=== PATIENT | male | born 1935 | race Caucasian/White ===

== ENCOUNTER 2017-03-26 15:28 | Inpatient (IN) | payer MEDICARE ==
[~2017-03-26] VITALS: Ht 177.8 cm; Wt 79.1 kg
[2017-03-26] VITALS (8 sets, daily range): BP systolic 148–225; BP diastolic 71–96; PULSE 75–96; RESP 18–20; TEMP 99.8–101.2; O2SAT 93–97
[2017-03-26] MEDS ORDERED: BP MED (15:48)
[2017-03-26] MEDS ORDERED: SODIUM CHLOR 0.9% 1000 ML INJ 1,000 ML IV ONE ×2 (16:08)
[2017-03-26] MEDS ORDERED: SODIUM CHLOR 0.9% 1000 ML INJ 400 ML IV ONE (16:08)
[2017-03-26] MEDS ORDERED: cefTRIAXone INJ 2,000 MG in SODIUM CHLORIDE 0.9% INJ 100 ML IV STA (16:08)
[2017-03-26] MEDS ORDERED: AZITHROMYCIN INJ 500 MG in SODIUM CHLOR 0.9% 250 ML INJ 250 ML IV STA (16:08)
[2017-03-26] MEDS ORDERED: OSELTAMIVIR PHOSPHATE 75 MG CAP PO ONE ×2 (16:15→17:00)
[2017-03-26] MEDS ORDERED: ACETAMINOPHEN 325 MG TAB PO ONE (16:15)
[2017-03-26 16:41] LABS: AUTOMATED NEUTROPHIL # 4.8 TH/MM3 (1.8-7.7); BASOPHIL % 0.4 % (0.0-2.0); EOSINOPHIL % 0.1 % (0.0-4.0); HEMATOCRIT 43.7 % (39.0-51.0); HEMOGLOBIN 15.1 GM/DL (13.0-17.0); LYMPH % 7.5 % (9.0-44.0); LYMPHOCYTE # 0.4 TH/MM3 (1.0-4.8); MEAN CELL VOLUME 83.6 FL (80.0-100.0); MEAN CORPUSCULAR HGB CONC 34.6 % (32.0-36.0); MEAN PLATELET VOLUME 7.9 FL (7.0-11.0); MONO % 9.4 % (0.0-8.0); MONOCYTE # 0.5 TH/MM3 (0-0.9); NEUT % 82.6 % (16.0-70.0); PLATELET COUNT 154 TH/MM3 (150-450); RED BLOOD COUNT 5.22 MIL/MM3 (4.50-5.90); RED CELL DISTRIBUTION WIDTH 12.7 % (11.6-17.2); WHITE BLOOD COUNT 5.7 TH/MM3 (4.0-11.0)
[2017-03-26 16:50] LABS: CHLORIDE 102 MEQ/L (98-107); SODIUM (NA) 136 MEQ/L (136-145)
[2017-03-26 16:54] LABS: ALBUMIN 3.5 GM/DL (3.4-5.0); BICARBONATE 29.5 MEQ/L (21.0-32.0); BLOOD UREA NITROGEN 20 MG/DL (7-18); CALCIUM 8.1 MG/DL (8.5-10.1); GLUCOSE,RANDOM 98 MG/DL (74-106)
[2017-03-26] MEDS ORDERED: PRIL20TA2 (16:56)
[2017-03-26] MEDS ORDERED: AMLO10 PO (16:56)
[2017-03-26] MEDS ORDERED: ENAL20TA81 PO (16:56)
[2017-03-26 16:57] LABS: ALT (GPT) 24 U/L (12-78); AST (GOT) 28 U/L (15-37)
[2017-03-26 16:58] LABS: GLOMERULAR FILTRATION RATE 53 ML/MIN (>89)
--- NOTE | 2017-03-26 16:58 | PD ---
HPI Chief Complaint: Cold / Flu Symptoms Time Seen by Provider: 16:08 Travel History International Travel<30 days: No Contact w/Intl Traveler<30days: No Traveled to known affect area: No History of Present Illness HPI 81-year-old male arrives with rigorous and fever. He's had a cough for about 1 day. Occasional dyspnea is reported associated with severe spells. He denies chest pain. Patient reports noncompliance with antihypertensives, lisinopril and amlodipine, this morning due to cold symptoms. No nausea vomiting or diarrhea. No abdominal pain. Patient reports a history of coronary artery disease. He has no smoking history. He denies sick contacts. The patient is visiting from [place]. The daughter reports he is very active typically for his age. [facility] Past Medical History Myocardial Infarction: Yes Past Surgical History Abdominal Surgery: Yes (INTESTINE REMOVED) Appendectomy: Yes Cardiac Surgery: Yes (7 STENTS) Cholecystectomy: Yes Tonsillectomy: Yes Social History Alcohol Use: No Tobacco Use: No Substance Use: No Allergies-Medications (Allergen,Severity, Reaction): Coded Allergies: bacitracin (Verified Allergy, Severe, RASH, 03/26/17) neomycin (Verified Allergy, Severe, RASH, 03/26/17) polymyxin B (Verified Allergy, Severe, RASH, 03/26/17) Reported Meds & Prescriptions Reported Meds & Active Scripts Active Reported Prilosec (Omeprazole Magnesium) 20 Mg Tab Vasotec (Enalapril Maleate) 20 Mg Tab 20 Mg PO DAILY Norvasc (Amlodipine Besylate) 10 Mg Tab 10 Mg PO DAILY Review of Systems Except as stated in HPI: all other systems reviewed are Neg General / Constitutional: No: Fever Physical Exam Narrative GENERAL: 81-year-old male pleasant well-nourished well-developed, frequent cough Vital Signs Date Time Temp Pulse Resp B/P (MAP) Pulse Ox O2 Delivery O2 Flow Rate FiO2 03/26/17 16:49 86 20 225/94 (137) 94 03/26/17 16:36 96 03/26/17 15:30 100.3 96 20 196/96 (129) 93 SKIN: Warm and dry. HEAD: Atraumatic. Normocephalic. EYES: Pupils equal and round. No scleral icterus. No injection or drainage. ENT: No nasal bleeding or discharge. Mucous membranes pink and moist. NECK: Trachea midline. No JVD. CARDIOVASCULAR: Regular rate and rhythm. RESPIRATORY: No accessory muscle use. Clear to auscultation. Breath sounds equal bilaterally. GASTROINTESTINAL: Abdomen soft, non-tender, nondistended. Hepatic and splenic margins not palpable. MUSCULOSKELETAL: Extremities without clubbing, cyanosis, or edema. No obvious deformities. NEUROLOGICAL: Awake and alert. No obvious cranial nerve deficits. Motor grossly within normal limits. Five out of 5 muscle strength in the arms and legs. Normal speech. PSYCHIATRIC: Appropriate mood and affect; insight and judgment normal. Data Data Last Documented VS Vital Signs Date Time Temp Pulse Resp B/P (MAP) Pulse Ox O2 Delivery O2 Flow Rate FiO2 03/26/17 16:49 86 20 225/94 (137) 94 03/26/17 15:30 100.3 Orders Orders Sepsis Workup Initiated (03/26/17 ) Electrocardiogram (03/26/17 16:08) Complete Blood Count With Diff (03/26/17 16:08) Comprehensive Metabolic Panel (03/26/17 16:08) Lactic Acid Sepsis Protocol (03/26/17 16:08) Urinalysis - C+S If Indicated (03/26/17 16:08) Influenzae A/B Antigen (03/26/17 16:08) Blood Culture (03/26/17 16:08) Blood Glucose (03/26/17 16:08) Ecg Monitoring (03/26/17 16:08) Iv Access Insert/Monitor (03/26/17 16:08) Oximetry (03/26/17 16:08) Oxygen Administration (03/26/17 16:08) Acetaminophen (Tylenol) (03/26/17 16:15) Ceftriaxone Inj (Rocephin Inj) (03/26/17 16:08) Azithromycin Inj (Zithromax Inj) (03/26/17 16:08) Sodium Chlor 0.9% 1000 Ml Inj (Ns 1000 M (03/26/17 16:08) Sodium Chlor 0.9% 1000 Ml Inj (Ns 1000 M (03/26/17 16:08) Sodium Chlor 0.9% 1000 Ml Inj (Ns 1000 M (03/26/17 16:08) Oseltamivir (Tamiflu) (03/26/17 16:15) Oseltamivir (Tamiflu) (03/26/17 17:00) Amlodipine (Norvasc) (03/26/17 17:00) Lisinopril (Prinivil) (03/26/17 17:00) Place In Observation (03/26/17 ) Vital Signs (Adult) BISHOP.Q4H (03/26/17 17:09) Activity Oob With Assistance (03/26/17 17:09) Admit Order (Ed Use Only) (03/26/17 ) [employer] Operator / Telemetry BISHOP.Q8H (03/26/17 17:09) Vital Signs (Adult) Q4H (03/26/17 17:09) Diet Heart Healthy (03/26/17 Dinner) Activity Oob With Assistance (03/26/17 17:09) Chest, Single Ap (03/26/17 ) Labs Laboratory Tests Test 03/26/17 16:25 03/26/17 16:30 White Blood Count 5.7 TH/MM3 Red Blood Count 5.22 MIL/MM3 Hemoglobin 15.1 GM/DL Hematocrit 43.7 % Mean Corpuscular Volume 83.6 FL Mean Corpuscular Hemoglobin 29.0 PG Mean Corpuscular Hemoglobin Concent 34.6 % Red Cell Distribution Width 12.7 % Platelet Count 154 TH/MM3 Mean Platelet Volume 7.9 FL Neutrophils (%) (Auto) 82.6 % Lymphocytes (%) (Auto) 7.5 % Monocytes (%) (Auto) 9.4 % Eosinophils (%) (Auto) 0.1 % Basophils (%) (Auto) 0.4 % Neutrophils # (Auto) 4.8 TH/MM3 Lymphocytes # (Auto) 0.4 TH/MM3 Monocytes # (Auto) 0.5 TH/MM3 Eosinophils # (Auto) 0.0 TH/MM3 Basophils # (Auto) 0.0 TH/MM3 CBC Comment DIFF FINAL Differential Comment Blood Urea Nitrogen 20 MG/DL Creatinine 1.30 MG/DL Random Glucose 98 MG/DL Total Protein 7.3 GM/DL Albumin 3.5 GM/DL Calcium Level 8.1 MG/DL Alkaline Phosphatase 67 U/L Aspartate Amino Transf (AST/SGOT) 28 U/L Alanine Aminotransferase (ALT/SGPT) 24 U/L Total Bilirubin 0.6 MG/DL Sodium Level 136 MEQ/L Potassium Level 3.7 MEQ/L Chloride Level 102 MEQ/L Carbon Dioxide Level 29.5 MEQ/L Anion Gap 5 MEQ/L Estimat Glomerular Filtration Rate 53 ML/MIN Lactic Acid Level 1.1 mmol/L MDM Medical Decision Making Medical Screen Exam Complete: Yes Emergency Medical Condition: Yes Medical Record Reviewed: Yes Differential Diagnosis Sepsis, pneumonia, influenza, anemia Narrative Course CBC & BMP Diagram 03/26/17 16:25 Total Protein 7.3, Albumin 3.5, Calcium Level 8.1 L, Alkaline Phosphatase 67, Aspartate Amino Transf (AST/SGOT) 28, Alanine Aminotransferase (ALT/SGPT) 24, Total Bilirubin 0.6 Blood cultures drawn. Rocephin and azithromycin given initially with concern for pneumonia however the patient is influenza positive and the presentation is consistent with influenza this season. Tamiflu started. Patient will be admitted. Discussed with Dr Collier. Sepsis Criteria SIRS Criteria (2 or more): Heart rate over 90, RR > 20 or PaCO2 < 32 Diagnosis Primary Impression: Influenza Admitting Information Admitting Physician Requests: Admit Jorge Vogel MD Mar 26, 2017 16:58
[2017-03-26 16:59] LABS: TOTAL BILIRUBIN ADULT 0.6 MG/DL (0.2-1.0); TOTAL PROTEIN 7.3 GM/DL (6.4-8.2)
[2017-03-26 17:00] LABS: ALKALINE PHOSPHATASE 67 U/L (45-117)
[2017-03-26] MEDS ORDERED: LISINOPRIL 20 MG TAB PO ONE (17:00)
--- NOTE | 2017-03-26 17:21 | RADRPT ---
EXAM DATE/TIME: 03/26/2017 17:01 [place] COMPARISON: No previous studies available for comparison. INDICATIONS : Cough and fever for 2 days. MEDICAL HISTORY : Myocardial infarction. SURGICAL HISTORY : Coronary artery stent. Appendectomy. Cholecystectomy. Bowel resection. ENCOUNTER: Initial ACUITY: 2 days PAIN SCORE: 0/10 LOCATION: Bilateral chest FINDINGS: A single view of the chest demonstrates the lungs to be symmetrically aerated without evidence of mas s, infiltrate or effusion. Mild cardiomegaly. Osseous structures are intact. CONCLUSION: Mild cardiomegaly. Clear lungs. Antonio Hung Jr., MD on March 26, 2017 at 17:18 Board Certified Radiologist. This report was verified electronically.
--- NOTE | 2017-03-26 18:16 | HHI.HP ---
[facility] No Primary Care Physician Admission Diagnosis Sepsis Criteria, +Influenza, HTN Diagnoses: Chief Complaint: Cough and fever Travel History International Travel<30 Days: No Contact w/Intl Traveler <30 Da: No Traveled to Known Affected Are: No History of Present Illness 81-year-old white male being admitted for AK I secondary to dehydration secondary to influenza. Patient was in his usual state of health until last night when he says his chronic cough got much worse and he felt subjective fevers and chills. He says he felt weak and had a poor appetite all day. This morning he felt worse and thus decided to come to the emergency department. He says his cough is productive but nonbloody. Still is feeling fevers and chills this morning. His daughter brought him to the emergency department. In the emergency room he was found to be flu positive and with a mild TEA with a GFR of around 53. He did get a chest x-ray which I independently reviewed and see no acute infiltrates. He was given IV boluses and rocephin and azithromycin. Past medical history significant for perforated intestine as well as esophageal injury secondary to intubation. PSH is significant for colostomy and reanastomosis. Patient does have a significant social history where he smoked since his teenage years until about 20 years ago. 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 Family history is significant as the daughter who he lives w/ recently had a sinus infx. Review of Systems Except as stated in HPI: all other systems reviewed are Neg Past Family Social History Allergies: Coded Allergies: bacitracin (Verified Allergy, Severe, RASH, 03/26/17) neomycin (Verified Allergy, Severe, RASH, 03/26/17) polymyxin B (Verified Allergy, Severe, RASH, 03/26/17) Physical Exam Vital Signs Vital Signs Date Time Temp Pulse Resp B/P (MAP) Pulse Ox O2 Delivery O2 Flow Rate FiO2 03/26/17 18:04 03/26/17 17:42 88 20 178/76 (110) 96 03/26/17 16:49 86 20 225/94 (137) 94 03/26/17 16:36 96 03/26/17 15:30 100.3 96 20 196/96 (129) 93 Physical Exam VS: afebrile GENERAL: In mild distress secondary to intense coughing spells, otherwise has no dyspnea outside of those coughing spells SKIN: Warm and dry. EYES: No scleral icterus. No injection or drainage. ENT: No nasal bleeding or discharge. Mucous membranes pink and moist. Hyperemic oropharynx CARDIOVASCULAR: Regular rate and rhythm. no murmurs RESPIRATORY: No accessory muscle use. Junky breath sounds bilaterally GASTROINTESTINAL: Abdomen soft, non-tender, nondistended. Extremities: No clubbing, cyanosis, or edema. No obvious deformities. MUSCULOSKELETAL: adequate muscle bulk and tone for age and habitus NEUROLOGICAL: Awake and alert. No obvious cranial nerve deficits. No facial droop nor slurred speech noted. PSYCHIATRIC: Appropriate mood and affect; insight and judgment normal. Laboratory Laboratory Tests Test 03/26/17 16:25 03/26/17 16:30 White Blood Count 5.7 Red Blood Count 5.22 Hemoglobin 15.1 Hematocrit 43.7 Mean Corpuscular Volume 83.6 Mean Corpuscular Hemoglobin 29.0 Mean Corpuscular Hemoglobin Concent 34.6 Red Cell Distribution Width 12.7 Platelet Count 154 Mean Platelet Volume 7.9 Neutrophils (%) (Auto) 82.6 Lymphocytes (%) (Auto) 7.5 Monocytes (%) (Auto) 9.4 Eosinophils (%) (Auto) 0.1 Basophils (%) (Auto) 0.4 Neutrophils # (Auto) 4.8 Lymphocytes # (Auto) 0.4 Monocytes # (Auto) 0.5 Eosinophils # (Auto) 0.0 Basophils # (Auto) 0.0 CBC Comment DIFF FINAL Differential Comment Blood Urea Nitrogen 20 Creatinine 1.30 Random Glucose 98 Total Protein 7.3 Albumin 3.5 Calcium Level 8.1 Alkaline Phosphatase 67 Aspartate Amino Transf (AST/SGOT) 28 Alanine Aminotransferase (ALT/SGPT) 24 Total Bilirubin 0.6 Sodium Level 136 Potassium Level 3.7 Chloride Level 102 Carbon Dioxide Level 29.5 Anion Gap 5 Estimat Glomerular Filtration Rate 53 Lactic Acid Level 1.1 Date/Time Source Procedure Growth Status 03/26/17 16:30 Blood Peripheral Aerobic Blood Culture Pending Received 03/26/17 16:30 Blood Peripheral Anaerobic Blood Culture Pending Received 03/26/17 16:08 Nasal Aspirate Influenza Types A,B Antigen (DB) - Final Positive For Flu A Antigen Complete Result Diagram: 03/26/17 1625 03/26/17 1625 Imaging Last Impressions Chest X-Ray 03/26/17 0000 Signed Impressions: Service Date/Time: Sunday, March 26, 2017 17:01 - CONCLUSION: Mild cardiomegaly. Clear lungs. MD Alla Mccoy Jr. VTE Risk Assessment Caprini VTE Risk Assessment: Mod/High Risk (score >= 2) Caprini Risk Assessment Model Point Value = 1 Point Value = 2 Point Value = 3 Point Value = 5 Age 41-60 Minor surgery BMI > 25 kg/m2 Swollen legs Varicose veins or History of unexplained or recurrent spontaneous Oral contraceptives or hormone replacement Sepsis (< 1 month) Serious lung disease, including pneumonia (< 1 month) Abnormal pulmonary function Acute myocardial infarction Congestive heart failure (< 1 month) History of inflammatory bowel disease Medical patient at bed rest Age 61-74 Arthroscopic surgery Major open surgery (> 45 min) Laparoscopic surgery (> 45 min) Malignancy Confined to bed (> 72 hours) Immobilizing plaster cast Central venous access Age >= 75 History of VTE Family history of VTE Factor V Leiden Prothrombin [id number] Lupus anticoagulant Anticardiolipin antibodies Elevated serum homocysteine Heparin-induced thrombocytopenia Other congenital or acquired thrombophilia Stroke (< 1 month) Elective arthroplasty Hip, pelvis, or leg fracture Acute spinal cord injury (< 1 month) Prophylaxis Regimen Total Risk Factor Score Risk Level Prophylaxis Regimen 0-1 Low Early ambulation 2 Moderate Order ONE of the following: *Sequential Compression Device (SCD) *Heparin 5000 units SQ BID 3-4 Higher Order ONE of the following medications: *Heparin 5000 units SQ TID *Enoxaparin/Lovenox 40 mg SQ daily (WT < 150 kg, CrCl > 30 mL/min) *Enoxaparin/Lovenox 30 mg SQ daily (WT < 150 kg, CrCl > 10-29 mL/min) *Enoxaparin/Lovenox 30 mg SQ BID (WT < 150 kg, CrCl > 30 mL/min) AND/OR *Sequential Compression Device (SCD) 5 or more Highest Order ONE of the following medications: *Heparin 5000 units SQ TID (Preferred with Epidurals) *Enoxaparin/Lovenox 40 mg SQ daily (WT < 150 kg, CrCl > 30 mL/min) *Enoxaparin/Lovenox 30 mg SQ daily (WT < 150 kg, CrCl > 10-29 mL/min) *Enoxaparin/Lovenox 30 mg SQ BID (WT < 150 kg, CrCl > 30 mL/min) AND *Sequential Compression Device (SCD) Assessment and Plan Assessment and Plan 81-year-old white male being admitted for TEA secondary to dehydration secondary to influenza Acute kidney injury -Status post IV fluid boluses, continue with IV infusion Influenza -Continue with Tamiflu -If has high-grade fevers recurring, can consider starting antibiotics. -I will hold off on administering further antibiotics for the time being since the chest x-ray is clear and this is most likely a viral picture -Duonebs w/ Mucomyst prn mucous plugging -blood cultures obtained -will order procalcitonin, if neg, can further be reassured abx won't be needed upon discharge. HTN urgency - vasotec prn, continue home meds lovenox Gurjit Collier MD Mar 26, 2017 18:16
[2017-03-26] MEDS ORDERED: ENALAPRILAT 1.25 MG/ML VIAL IV PUSH PRN (18:45)
[2017-03-26] MEDS ORDERED: RESP: ACETYLCYSTEINE 10% 10 ML NEB NEB PRN (20:00)
[2017-03-26] MEDS: OSELTAMIVIR PHOSPHATE 75 MG CAP PO SCH (20:55)
[2017-03-26] MEDS: PROMETHAZINE/CODEINE 6.25 MG/10 MG/5 ML CUP PO PRN (20:55)
[2017-03-26] MEDS: ENOXAPARIN SODIUM 30 MG/0.3 ML SYRINGE SQ SCH (20:56)
[2017-03-26] MEDS: RESP: ALBUTEROL 2.5 MG/IPRATROPIUM 0.5 MG NEB (SCH) NEB (21:41)
[2017-03-26] MEDS ORDERED: ACETAMINOPHEN 325 MG TAB PO PRN (22:00)
[2017-03-26] MEDS: guaiFENesin E.R. 600 MG TAB PO SCH (22:12)
[2017-03-26] MEDS: SODIUM CHLOR 0.9% 1000 ML INJ 1,000 ML IV SCH (23:05)
[2017-03-27] VITALS (10 sets, daily range): BP systolic 131–158; BP diastolic 63–82; PULSE 61–92; RESP 18–20; TEMP 98.6–99.9; O2SAT 94–99
[2017-03-27] MEDS: RESP: ALBUTEROL 2.5 MG/IPRATROPIUM 0.5 MG NEB (SCH) NEB ×3 (07:42→19:19)
[2017-03-27] MEDS: ENALAPRIL MALEATE 10 MG TAB PO SCH (07:55)
[2017-03-27] MEDS: OSELTAMIVIR PHOSPHATE 75 MG CAP PO SCH ×2 (07:55→20:17)
[2017-03-27] MEDS: guaiFENesin E.R. 600 MG TAB PO SCH ×2 (07:55→20:17)
[2017-03-27 13:30] LABS: BILIRUBIN, URINE NEG (NEG); BLOOD, URINE TRACE (NEG); GLUCOSE,URINE NEG (NEG); KETONE, URINE 15 mg/dL (NEG); NITRITE,URINE NEG (NEG); URINE LEUKOCYTE ESTERASE NEG (NEG)
[2017-03-27 13:48] LABS: URINE COLOR YELLOW (YELLW/STRAW)
[2017-03-27 13:49] LABS: SQUAMOUS EPITHELIAL CELL URINE 0-5 /hpf (0-5)
[2017-03-27] MEDS ORDERED: AZITHROMYCIN INJ 500 MG in SODIUM CHLOR 0.9% 250 ML INJ 250 ML IV SCH (15:00)
--- NOTE | 2017-03-27 15:07 | HHI.PR ---
Subjective Remarks Respiratory therapy says that the patient is on 3 L and about 96-9%. However no catherine desaturation in the 80s is charted anywhere. Patient himself says he feels a lot better compared to yesterday. Does not think that the DuoNeb treatments are helping him too much at all. Daughter associated breakfast this morning. Objective Vital Signs Date Time Temp Pulse Resp B/P (MAP) Pulse Ox O2 Delivery O2 Flow Rate FiO2 03/27/17 14:31 94 21 03/27/17 14:11 99 Nasal Cannula 3.00 03/27/17 12:00 99.3 61 18 158/82 (107) 96 03/27/17 07:55 96 Nasal Cannula 3.00 03/27/17 07:53 98.9 81 19 149/78 (101) 94 03/27/17 07:44 96 Nasal Cannula 3.00 03/27/17 04:00 99.9 61 20 141/74 (96) 97 03/27/17 00:00 99.3 64 18 139/76 (97) 97 03/26/17 22:30 92 18 148/71 (96) 03/26/17 21:45 96 Nasal Cannula 3.00 03/26/17 20:00 101.2 86 20 178/91 (120) 95 03/26/17 20:00 95 Nasal Cannula 3.00 03/26/17 18:15 99.8 75 18 159/74 (102) 97 03/26/17 18:04 03/26/17 17:42 88 20 178/76 (110) 96 03/26/17 16:49 86 20 225/94 (137) 94 03/26/17 16:36 96 03/26/17 15:30 100.3 96 20 196/96 (129) 93 I/O 03/26/17 03/26/17 03/26/17 03/27/17 03/27/17 03/27/17 07:00 15:00 23:00 07:00 15:00 23:00 Intake Total 1000 ml 480 ml Balance 1000 ml 480 ml Intake Oral 480 ml IV Total 1000 ml # Voids 1 # Bowel Movements 0 Result Diagram: 03/26/17 1625 03/26/17 162 Objective Remarks Still has diffuse intermittent wheezing all throughout, still has tight breath sounds Minimally labored breathing at most A/P Assessment and Plan 81-year-old white male being admitted for TEA secondary to dehydration secondary to influenza Acute kidney injury -improving, continue IVFs Influenza -Continue with Tamiflu -Duonebs w/ Mucomyst prn mucous plugging -blood cultures -f/u -continuing w/ rocephin and zithromycin given elevated procalcitonin HTN urgency - vasotec prn, continue home meds lovenox Gurjit Collier MD Mar 27, 2017 15:07
[2017-03-27] MEDS: cefTRIAXone INJ 1,000 MG in SODIUM CHLORIDE 0.9% INJ 100 ML IV SCH (15:19)
[2017-03-27] MEDS: PROMETHAZINE/CODEINE 6.25 MG/10 MG/5 ML CUP PO PRN (17:09)
[2017-03-27] MEDS: SODIUM CHLOR 0.9% 1000 ML INJ 1,000 ML IV SCH (17:10)
[2017-03-27] MEDS: ENOXAPARIN SODIUM 30 MG/0.3 ML SYRINGE SQ SCH (20:17)
--- NOTE | 2017-03-27 21:52 | EKG ---
Date Performed: 03/26/2017 Time Performed: 16:24:56 PTAGE: 81 years EKG: Sinus rhythm POSSIBLE LEFT ATRIAL ENLARGEMENT MODERATE INTRAVENTRICULAR CONDUCTION DELAY NONSPECIFIC T-WAVE ABNOR MALITY ABNORMAL ECG NO PREVIOUS TRACING DOCTOR: Timmy Otero Interpretating Date/Time 03/27/2017 21:51:14
[2017-03-28] VITALS: BP 161/78; PULSE 70; RESP 20; TEMP 99.7; O2SAT 94
[2017-03-28 07:02] LABS: BICARBONATE 28.8 MEQ/L (21.0-32.0); CALCIUM 7.7 MG/DL (8.5-10.1)
[2017-03-28] MEDS: RESP: ALBUTEROL 2.5 MG/IPRATROPIUM 0.5 MG NEB (SCH) NEB ×2 (07:40→13:53)
[2017-03-28 07:41] VITALS: O2SAT 95
[2017-03-28 08:00] VITALS: BP 153/70; PULSE 60; RESP 24; TEMP 98.9; O2SAT 93
[2017-03-28] MEDS: ENALAPRIL MALEATE 10 MG TAB PO SCH (08:36)
[2017-03-28] MEDS: OSELTAMIVIR PHOSPHATE 75 MG CAP PO SCH (08:36)
[2017-03-28] MEDS: guaiFENesin E.R. 600 MG TAB PO SCH (08:36)
[2017-03-28] MEDS ORDERED: AZITHROMYCIN 250 MG TAB PO SCH (10:00)
[2017-03-28 12:00] VITALS: BP 137/73; PULSE 61; RESP 20; TEMP 97.3; O2SAT 94
[2017-03-28] MEDS ORDERED: CEFD300C PO (13:54)
[2017-03-28] MEDS ORDERED: AZIT250T3 PO (13:54)
--- NOTE | 2017-03-28 13:54 | HHI.DCPOC ---
Discharge Care Plan Diagnosis: (1) Influenza Goals to Promote Your Health * To prevent worsening of your condition and complications * To maintain your health at the optimal level Directions to Meet Your Goals Take your medications as prescribed Follow your dietary instruction Follow activity as directed Keep your appointments as scheduled Take your immunizations and boosters as scheduled If your symptoms worsen call your PCP, if no PCP go to Urgent Care Center or Emergency Room Smoking is Dangerous to Your Health. Avoid second hand smoke Call the 24-hour hour crisis hotline for domestic abuse at Gurjit Collier MD Mar 28, 2017 13:54
[2017-03-28] MEDS ORDERED: ENAL20TA81 PO (15:11)
[2017-03-28] MEDS ORDERED: VENTAER INH (15:11)
[2017-03-28] MEDS ORDERED: AMLO10 PO (15:11)
[2017-03-28] MEDS ORDERED: OSEL75 PO (15:13)
--- NOTE | 2017-03-28 15:13 | HHI.PR ---
Subjective Remarks Nursing denies any substantial deterioration since last night. Respiratory therapist confirms that the patient is weaned off of oxygen and now saturating well on room air. Patient himself says he feels "100% better." Wanting to go home and is wanting a primary care provider Objective Vital Signs Date Time Temp Pulse Resp B/P (MAP) Pulse Ox O2 Delivery O2 Flow Rate FiO2 03/28/17 12:00 97.3 61 20 137/73 (94) 94 03/28/17 08:00 98.9 60 24 153/70 (97) 93 03/28/17 07:41 95 21 03/28/17 00:00 99.7 70 20 161/78 (105) 94 03/27/17 20:00 98.9 92 20 131/63 (85) 94 03/27/17 19:19 94 21 03/27/17 19:00 97 Nasal Cannula 3.00 03/27/17 16:00 98.6 74 18 155/80 (105) 96 I/O 03/27/17 03/27/17 03/27/17 03/28/17 03/28/17 03/28/17 06:59 14:59 22:59 06:59 14:59 22:59 Intake Total 480 ml 1100 ml 480 ml Balance 480 ml 1100 ml 480 ml Intake Oral 480 ml 480 ml IV Total 1100 ml # Voids 1 3 # Bowel Movements 0 Result Diagram: 03/26/17 1625 03/28/17 0550 Objective Remarks very mild wheezing, good BS today compared to yesterday, unlabored breathing A/P Assessment and Plan 81-year-old white male being admitted for TEA secondary to dehydration secondary to influenza Patient clinically doing better from flu symptoms. Patient has met maximum benefit from hospitalization and is clinically stable for discharge. Will be discharged with antibiotics and Tamiflu. Gurjit Collier MD Mar 28, 2017 15:13
[2017-03-28] MEDS: cefTRIAXone INJ 1,000 MG in SODIUM CHLORIDE 0.9% INJ 100 ML IV SCH (15:54)
== END 2017-03-28 16:35 | disposition home or self-care (01) | DRG 684 ==
LOC: PHED 15:28 → PHEDA 17:11 → PH3B 17:54 → OBSVTOIN 03-27 12:33
PROVIDERS: ADMIT Hospitalist; ATTEND Hospitalist
DX: N17.9 Acute kidney failure, unspecified (principal); J09.X2 Influenza due to identified novel influenza A virus with other respiratory manifestations; E86.0 Dehydration; I16.0 Hypertensive urgency; Z88.1 Allergy status to other antibiotic agents; Z95.5 Presence of coronary angioplasty implant and graft; Z87.891 Personal history of nicotine dependence
CPT/HCPCS: 71045; 80048; 80053; 81001; 83605; 84145; 85025; 87040; 87804; 93005; 94640; 94664; 96361; 96365; 96375; G0378; J0456; J0696; J1650; J7030; J7050